=== PATIENT | female | born 1965 | race African-American/Black ===

== ENCOUNTER 2017-05-18 03:50 | Emergency (ER) | payer BC ==
[2017-05-18] MEDS ORDERED: Ketorolac Tromethamine 30 MG/ML VIAL ONE (04:05)
[2017-05-18] MEDS ORDERED: Ondansetron HCl/PF 4 MG/2 ML Vial ONE (04:05)
[2017-05-18 04:18] LABS: #Basophils 0.1 thou/uL (0.0-0.2); #Lymphocytes 1.4 thou/uL (1.20-3.40); #Monocytes 0.3 thou/uL (0.11-0.59); %Basophils 2.4 % (0.0-1.0); %Lymphocytes 29.9 % (21.0-51.0); %Monocytes 5.2 % (0.0-10.0); Hematocrit 39.9 % (36.0-47.0); Red Blood Cell (RBC) Count 4.44 mill/uL (4.20-5.40); White Blood Cell (WBC) Count 4.8 thou/uL (4.8-10.8)
[2017-05-18 04:24] LABS: Bilirubin Negative (Negative); Blood, Urine Moderate (Negative); Glucose, Urine (Dipstick) Negative (Negative); Ketone, Urine Negative (Negative); Nitrite Negative (Negative); Protein, Urine (Dipstick) Negative (Neg-Trace); Urobilinogen 0.2 mg/dL (0.2-1.0)
[2017-05-18 04:32] LABS: ALT (SGPT) 28 U/L (8-55); AST (SGOT) 22 U/L (5-34); Alkaline Phosphatase 83 U/L (40-150); Anion Gap 14 mmol/L (10-20); BUN (Urea Nitrogen) 14 mg/dL (9.8-20.1); Bilirubin, Total 0.5 mg/dL (0.2-1.2); Calc. Creatinine Clearance 0 mL/min (70-130); Calcium 9.2 mg/dL (7.8-10.44); Carbon Dioxide 24 mmol/L (22-29); Chloride 107 mmol/L (98-107); Estimated GFR-MDRD Greater than 90; Globulin 3.2 g/dL (2.4-3.5); Lipase 21 U/L (8-78); Protein, Total 7.5 g/dL (6.0-8.3)
[2017-05-18 04:33] LABS: Bacteria/HPF Rare-Few HPF (None Seen); Hyaline Casts/LPF NONE SEEN LPF (0-3 Hyaline); Squamous Epithelial 0-3 HPF (0-3); WBC/HPF None Seen HPF (0-3)
--- NOTE | 2017-05-18 08:09 | ULT ---
PRELIMINARY REPORT/[facility]/EMERGENCY AFTER HOURS PROCEDURE: EXAM: US Abdomen Limited, Right Upper Quadrant CLINICAL HISTORY: 51 years old, female; Pain and signs and symptoms; Nausea; Abdominal pain; Other: Epigastric to ruq p ain TECHNIQUE: Real-time ultrasound of the right upper quadrant with image documentation. COMPARISON: No relevant prior studies available. FINDINGS: Numerous shadowing gallstones within the gallbladder. There also appears to be some biliary sludge in the gallbladder. Gallbladder upper normal to mildly prominent in size, transverse diameter of 4.1 cm. No gallbladder wall thickening or pericholecystic fluid. No biliary dilation, common duct measures 4 mm. Approximately 4 cm cyst in the right lobe of the liver. Otherwise essentially unremarkable liver, no other focal abnormality. Visible pancreas unremarkable. Images of the right kidney show no hydronephrosis. 9 x 11 mm calculus in the mid to lower right kidney. IMPRESSION: Cholelithiasis, see additional details above. No biliary dilation. Other findings discussed above. Thank you for allowing us to participate in the care of your patient. Dictated and Authenticated by: Galileo Robison MD 05/18/2017 6:26 AM Central Time ([place] & [place]) FINAL REPORT RIGHT UPPER QUADRANT ULTRASOUND: Date: 05/18/17 INDICATION: 51-year-old female with epigastric abdominal pain and right upper quadrant abdominal pain. TECHNIQUE: Andrew scale, color Doppler, and vascular duplex was performed of the structures of the right upper xochitl drant. COMPARISON: None. FINDINGS: I agree with the preliminary report from [facility]. Please see the preliminary report for full details. IMPRESSION: 1. Cholelithiasis without sonographic evidence of acute cholecystitis. No sonographic Babcock's sign reported. 2. Right hepatic lobe cyst measuring up to 4.5 cm. 3. Right mid renal nonobstructing calculus measuring 1.2 cm. POS: [facility]
== END 2017-05-18 06:50 | disposition home or self-care (01) ==
LOC: SCSER 03:50
DX: K80.50 Calculus of bile duct without cholangitis or cholecystitis without obstruction (principal)
CPT/HCPCS: 76705; 80053; 81003; 81015; 83690; 85025; 96374; 96375; J1885; J2405

== ENCOUNTER 2017-05-24 13:46 | Outpatient (CLI) | payer BC | END 2017-05-24 13:47 | disposition home or self-care (01) | LOC: LABBT 13:46 | PROVIDERS: ATTEND Specialist | DX: Z01.812 Encounter for preprocedural laboratory examination (principal); K80.12 Calculus of gallbladder with acute and chronic cholecystitis without obstruction ==

== ENCOUNTER 2017-06-02 10:22 | Day surgery (SDC) | payer BC ==
[2017-05-24 13:58] VITALS: BMI 29.4
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
[2017-06-02] MEDS ORDERED: Levofloxacin 500 mg/D5W 100 ml Premix Bag ONE (11:16)
[2017-06-02] MEDS ORDERED: Ketorolac Tromethamine 30 MG/ML VIAL ONE (11:16)
[2017-06-02] MEDS ORDERED: Scopolamine 1.5 mg/72 hour Patch ONE (11:25)
[2017-06-02] MEDS ORDERED: Bupivacaine/Epinephrine 0.25% 30 ML VIAL ONE (11:39)
[2017-06-02] MEDS ORDERED: Fentanyl 250 MCG/5 ML VIAL ONE (13:00)
[2017-06-02] MEDS ORDERED: Dexamethasone 20 MG/5 ML VIAL ONE (13:34)
[2017-06-02] MEDS ORDERED: Glycopyrrolate 0.2 MG/ML 5 ML SYRINGE ONE (13:34)
[2017-06-02] MEDS ORDERED: Succinylcholine Chloride 20 MG/ML 10 ml SYRINGE FS ONE (13:34)
[2017-06-02] MEDS ORDERED: PROPOFOL 200 MG/20 ML VIAL ONE (13:34)
[2017-06-02] MEDS ORDERED: Lidocaine 1% PF 5 ML VIAL ONE (13:34)
[2017-06-02] MEDS ORDERED: Naloxone HCl 0.4 mg/ml Vial ONE (13:34)
[2017-06-02] MEDS ORDERED: Ondansetron HCl/PF 4 MG/2 ML Vial ONE (13:34)
[2017-06-02] MEDS ORDERED: Fentanyl 100 MCG/2 ML VIAL ONE ×2 (14:39→14:56)
[2017-06-02] MEDS ORDERED: traMADol HCl 50 MG TAB ONE (16:00)
--- NOTE | 2017-06-02 17:33 | OP ---
DATE OF PROCEDURE: 06/02/2017 PREOPERATIVE DIAGNOSES: Acute and chronic cholecystitis and cholelithiasis, hydrops of the gallbladd er. POSTOPERATIVE DIAGNOSES: Acute and chronic cholecystitis and cholelithiasis, hydrops of the gallblad dee and gallstone block in the gallbladder outlet. SURGEON: Dr. Atul Casiano. ANESTHESIA: General. PROCEDURE: Laparoscopic video cholecystectomy. ANESTHESIA: Local anesthetic 0.25% Marcaine with epinephrine, 30 mL. DESCRIPTION OF PROCEDURE: Patient taken to the operating room where under general anesthesia, abdome n was prepared with ChloraPrep and draped in routine fashion. Local anesthetic infiltrated into skin and subcutaneous tissue about each port site. Infraumbilical incision made and pneumoperitoneum to 15 mmHg obtained with the Veress needle, replacing it with a 5 port and video laparoscope inserted. Right subxiphoid incision made and 11 port placed. Right subcostal incision made mid clavicular ante rior axillary lines and 5 ports placed. Gallbladder was distended and wall thickened. Fundus graspe d and reflected cephalad. Infundibulum grasped and reflected laterally. There was a stone blocking the gallbladder outlet. Cystic artery and duct dissected free. Critical view obtained with perichol ecystic dissection 2/3rds of cystic plate, cystic artery duct doubly clipped and divided and gallblad dee dissected free from the liver bed obtaining good hemostasis prior to division of final peritoneal attachments. Gallbladder and contents removed and submitted to Pathology. Good hemostasis ensured with cautery. Irrigant and pneumoperitoneum evacuated. All instruments removed and all skin incisio ns approximated with interrupted subdermal 4-0 Monocryl and DermaGlue applied.
== END 2017-06-02 15:59 | disposition home or self-care (01) ==
LOC: SDC 10:22
PROVIDERS: ATTEND Specialist
PROC: 0FT44ZZ Resection of Gallbladder, Percutaneous Endoscopic Approach (ICD-10-PCS; principal; 2017-06-02)
DX: K80.12 Calculus of gallbladder with acute and chronic cholecystitis without obstruction (principal); K82.1 Hydrops of gallbladder; Z88.2 Allergy status to sulfonamides; Z98.51 Tubal ligation status; Z93.0 Tracheostomy status; Z98.890 Other specified postprocedural states; Z87.81 Personal history of (healed) traumatic fracture
CPT/HCPCS: 88304; 96374; J0131; J1100; J1885; J1956; J2001; J2310; J2405; J2704; J3010

== ENCOUNTER 2017-06-13 10:54 | Outpatient (CLI) | payer BC ==
--- NOTE | 2017-06-13 12:18 | RAD ---
CHEST TWO VIEWS: History: 70.49 laparoscopic cholecystectomy. Comparison: None. FINDINGS: Lungs are without focal airspace consolidation, pneumothorax or effusion. There appears to be a small pulmonary nodule in the left suprahilar region, likely a small granuloma. No acute osseous abnormali ty. IMPRESSION: Likely left suprahilar pulmonary nodule, calcified granuloma. Follow up two view chest in six months is recommended. POS: [facility]
== END 2017-06-13 10:55 | disposition home or self-care (01) ==
LOC: RAD 10:54
PROVIDERS: ATTEND Specialist
DX: Z48.815 Encounter for surgical aftercare following surgery on the digestive system (principal); Z90.49 Acquired absence of other specified parts of digestive tract
CPT/HCPCS: 36415; 71046; 80053; 85025